=== PATIENT | male | born 1970 | race Asian ===

== ENCOUNTER 2017-07-25 23:27 | Emergency (ER) | payer BC, OTHER ==
[~2017-07-25] VITALS: Ht 172.7 cm; Wt 79.0 kg
[2017-07-25 23:38] VITALS: Ht 172.7 cm; Wt 79.0 kg
--- NOTE | 2017-07-26 01:09 | ERD ---
ER Documentation Chief Complaint Chief Complaint lump right breast HPI 47-year-old male, previously healthy, presents to the emergency department complaining of a 3 months with lump on the right breast associated with mild tenderness. Denies any nipple discharge, no nipple changes, no family history of breast cancer. ROS A 12-point review of systems was performed and negative other than presented in the history of present illness. SYSTEMIC symptoms: no fever, chills, no night sweats, no weight loss EYE symptoms: No blurred vision, no eye discharge OTOLARYNGEAL symptoms: No hearing loss. No ear pain, no sore throat CARDIOVASCULAR symptoms: No chest pain or discomfort, no palpitations. PULMONARY symptoms: No dyspnea, no cough, no wheezing. GASTROINTESTINAL symptoms: No abdominal pain, no nausea, no vomiting, no diarrhea MUSCULOSKELETAL symptoms: No arthralgias, no muscle aches. NEUROLOGY symptoms: No confusion, no syncope, no numbness or tingling. SKIN: No rashes Medications Home Meds Active Scripts Ibuprofen* (Motrin*) 600 Mg Tab, 600 MG PO Q8 Y for PAIN AND OR ELEVATED TEMP, # 30 TAB Prov:LANCE PAEZ MD 07/26/17 Allergies Allergies: Coded Allergies: No Known Allergy (Unverified , 07/25/17) PMhx/Soc Medical and Surgical Hx: pt denies Medical Hx, pt denies Surgical Hx Hx Alcohol Use: No Hx Substance Use: No Hx Tobacco Use: Yes Smoking Status: Current some day smoker Physical Exam Vitals Vital Signs Date Time Temp Pulse Resp B/P Pulse Ox O2 Delivery O2 Flow Rate FiO2 07/25/17 23:38 98.3 66 20 130/86 100 Physical Exam Patient is in no acute distress, vital signs stable. Alert and fully oriented. EYES: PERRLA, EOMI, Sclera and conjunctiva appear normal. EARS: Canals clear, tympanic membranes WNL THROAT: Normal oropharynx. NECK: Supple, No lymphadenopathy. Full ROM without pain or tenderness. HEART: RRR, no rubs, murmurs, clicks or gallops. LUNGS: Clear to auscultation. Breast: Right nipple: Normal inspection, 1 cm round well-defined lump retroareolar. Contralateral breast in normal limits Procedures/MDM 47-year-old male who is a healthy, presents the emergency department complaining of 3 months with progressive enlargement of the right breast Vital signs stable, Physical exam revealed a 1 cm, round, well-defined retro- areolar lump on the right breast. Differential diagnosis include but not limited to: Hormonal imbalance, hypothyroidism, substance abuse, alcohol abuse. Low suspicion for breast cancer. Pertinent Data: Breast ultrasound: Physical examination and clinical presentation consistent most likely with gynecomastia. During the ED course the patient remained stable, no new complaints. Results and clinical impression discussed with patient who agrees with management. The patient is stable to be treated outpatient and will be discharged home with a Rx for ibuprofen, some side effects of prescribed medications (headache, rash, nausea, vomiting, diarrhea, drowsiness, habituation , bleeding, hypertension, interactions with other medications) were reviewed. The patient was instructed to follow up with the primary care provider in the next 48h. If symptoms persist, worsen or new symptoms develop, then patient should return to the ED immediately. Instructions explained and given directly by me to the patient in Polish with acknowledgment and demonstrated understanding. Disclaimer: Inadvertent spelling and grammatical errors are likely due to EHR/ dictation software use and do not reflect on the overall quality of patient care. Also, please note that the electronic time recorded on this note does not necessarily reflect the actual time of the patient encounter. Departure Diagnosis: Primary Impression: Gynecomastia, male Condition: Stable Additional Instructions: Call your primary care doctor TOMORROW for an appointment during the next 1-2 days. See the doctor sooner or return here if your condition worsens before your appointment time. Thank you very much for allowing us to participate in your care. Your health and safety is our top priority at [facility]. Have prescriptions filled and follow precisely the directions on the label. Follow-up with primary care provider during the next 4 days and bring all the information and medications prescribed. If illness has not improved in 2 days, then make an appointment with primary care provider. If the provider is unavailable, return to the Emergency Department immediately. LANCE PAEZ MD Jul 26, 2017 01:09
[2017-07-26] MEDS ORDERED: IBUP-1542 PO (01:50)
--- NOTE | 2017-07-26 03:09 | RADRPT ---
PROCEDURE: Ultrasound soft tissue CLINICAL INDICATION: Right breast lump question gynecomastia, swelling TECHNIQUE: Ultrasound of the right retroareolar region in the region of swelling was performed. COMPARISON: None available FINDINGS: Ultrasound of the right retroareolar region demonstrates flame shaped decreased echogenicity compati ble with mild to moderate gynecomastia. This measures approximate 1.5 x 1 x 1 cm in maximal dimensio n. IMPRESSION: Compatible with mild to moderate right gynecomastia. Recommendation: Clinical management and follow-up. BIRADS 2 - benign RPTAT: HJES .Jake Webb MD, MD Date Time Electronically viewed and signed by .Jake Webb MD, MD on 07/26/2017 03:09 .S/
[2017-07-26 03:15] VITALS: BP 120/54; PULSE 60; RESP 16; TEMP 98.1
== END 2017-07-26 03:16 | disposition home or self-care (01) ==
LOC: FTE 23:27
DX: N62 Hypertrophy of breast (principal); F17.210 Nicotine dependence, cigarettes, uncomplicated
CPT/HCPCS: 76536